=== PATIENT | female | born 1975 | race Caucasian/White ===

== ENCOUNTER → 2017-10-23 | Outpatient (CLI) | payer MEDICAID | END | disposition home or self-care (01) | LOC: CFH 10:24 | PROVIDERS: ATTEND Family Medicine | DX: Z12.31 Encounter for screening mammogram for malignant neoplasm of breast (principal) | CPT/HCPCS: G0202 ==

== ENCOUNTER → 2017-12-24 | Outpatient (CLI) | payer MEDICAID | END | disposition home or self-care (01) | LOC: CFH 12:45 | PROVIDERS: ATTEND Family Medicine | DX: N60.01 Solitary cyst of right breast (principal); N63.10 Unspecified lump in the right breast, unspecified quadrant; Z80.3 Family history of malignant neoplasm of breast | CPT/HCPCS: 76642; 77065 ==

== ENCOUNTER → 2018-01-15 | Outpatient (CLI) | payer MEDICAID ==
[~2018-01-15] MED LIST: LIDOCAINE 1%, 20ML ONE
== END | disposition home or self-care (01) ==
LOC: CFH 08:20
PROVIDERS: ATTEND Family Medicine
DX: N63.20 Unspecified lump in the left breast, unspecified quadrant (principal)
CPT/HCPCS: 19083; 76641; 77065; 88305; J3490

== ENCOUNTER 2018-03-09 07:24 | Inpatient (IN) | payer MEDICAID ==
[~2018-03-09] VITALS: Ht 166.4 cm; Wt 79.6 kg
[~2018-03-09 07:24] MED LIST changes: +BACL20TA PO; +BUPR300T49 PO; +HYDR25TA6 PO; -LIDOCAINE 1%, 20ML ONE; +LISI-170 PO
[2018-03-09] MEDS ORDERED: LIDOCAINE-MPF 1%, 2ML ONE (08:00)
[2018-03-09] MEDS ORDERED: LACTATED RINGERS 1,000 ML IV SCH (08:15)
[2018-03-09 08:16] LABS: HCG UR SG 1.024 (1.003-1.030)
[2018-03-09] MEDS ORDERED: LIDOCAINE-MPF 1%, 5ML ONE ×2 (08:19→08:21)
[2018-03-09] MEDS ORDERED: BUPIVACAINE/PF 0.5% ONE (08:20)
[2018-03-09] MEDS ORDERED: ISOSULFAN BLUE 10 MG/ML, 5ML IV ONE (08:20)
[2018-03-09] MEDS ORDERED: EPINEPHRINE 1 MG/ML, 1ML ONE (08:21)
[2018-03-09] MEDS ORDERED: BUPIVACAINE/PF-EPI 0.5% 1:200K ONE (08:25)
[2018-03-09] MEDS ORDERED: ACETAMINOPHEN 500 MG TABLET PO ONE (08:30)
[2018-03-09] MEDS ORDERED: ONDANSETRON ODT 8 MG PO ONE (08:30)
[2018-03-09] MEDS ORDERED: LIDOCAINE-MPF 1%, 2ML INFIL ONE (08:30)
[2018-03-09] MEDS ORDERED: OxyconTIN ER 20 MG TAB.ER PO ONE (08:30)
[2018-03-09] MEDS ORDERED: GABAPENTIN 300 MG CAPSULE PO ONE (08:30)
[2018-03-09] MEDS ORDERED: MIDAZOLAM 1 MG/ML, 2ML ONE (08:35)
[2018-03-09] MEDS ORDERED: FENTANYL PF 250 MCG/5ML ONE (08:35)
[2018-03-09] MEDS ORDERED: LIDOCAINE GEL 2%, 5ML ONE (08:36)
[2018-03-09] MEDS ORDERED: SUCCINYLCHOLINE 20 MG/ML, 10ML ONE (09:18)
[2018-03-09] MEDS ORDERED: ROCURONIUM 10 MG/ML,10ML ONE (09:18)
[2018-03-09] MEDS ORDERED: FENTANYL PF 100 MCG/2ML IV PRN (09:30)
[2018-03-09] MEDS ORDERED: ALBUTEROL/IPRATROPIUM 2.5MG/0.5MG, 3 ML NPPB PRN (09:30)
[2018-03-09] MEDS ORDERED: PROMETHAZINE 12.5 MG SUPP PR PRN (09:30)
[2018-03-09] MEDS ORDERED: METOCLOPRAMIDE 5 MG/ML, 2ML IV PRN (09:30)
[2018-03-09] MEDS ORDERED: ALBUTEROL SULFATE 2.5 MG/3 ML NPPB PRN (09:30)
[2018-03-09] MEDS ORDERED: DIAZEPAM 5 MG/ML, 2ML IVPush PRN (09:30)
[2018-03-09] MEDS ORDERED: OXYcodone 5 MG/5 ML ORAL.SOL UDC PO PRN (09:30)
[2018-03-09] MEDS ORDERED: MIDAZOLAM 1 MG/ML, 2ML IV PRN (09:30)
[2018-03-09] MEDS ORDERED: LABETALOL 5MG/ML, 20ML IV PRN (09:30)
[2018-03-09] MEDS ORDERED: morphine SULFATE 10 MG/ML, 1ML IV PRN ×2 (09:30→13:30)
[2018-03-09] MEDS ORDERED: PROMETHAZINE 25 MG/ML, 1ML IV PRN (09:30)
[2018-03-09] MEDS ORDERED: MEPERIDINE/PF 25MG/0.5ML IVPush PRN (09:30)
[2018-03-09] MEDS ORDERED: HYDROmorphone 1 MG/ML, 1ML IV PRN (09:30)
[2018-03-09] MEDS ORDERED: ONDANSETRON 2MG/ML, 2ML IVPush PRN (09:30)
[2018-03-09] MEDS ORDERED: hydrALAzine 20 MG/ML, 1ML IV PRN (09:30)
[2018-03-09] MEDS ORDERED: DEXAMETHASONE 4 MG/ML, 1ML ONE (09:58)
[2018-03-09] MEDS ORDERED: CEFAZOLIN 1,000 MG ONE (09:58)
[2018-03-09] MEDS ORDERED: PROPOFOL 10 MG/ML, 20ML ONE (09:58)
[2018-03-09] MEDS ORDERED: KETAMINE 10 MG/ML, 20ML ONE (09:59)
[2018-03-09] MEDS ORDERED: MEPERIDINE/PF 50 MG/ML ONE (09:59)
[2018-03-09] MEDS ORDERED: LORazepam 2 MG/ML, 1ML ONE (11:14)
[2018-03-09] MEDS: LORazepam 2 MG/ML, 1ML IVPush PRN ×2 (11:16→11:35)
[2018-03-09] MEDS ORDERED: ONDANSETRON 2MG/ML, 2ML IV PRN (13:30)
[2018-03-09] MEDS ORDERED: HYDROcodone/APAP 5/325 TABLET PO PRN (13:30)
[2018-03-09 14:00] VITALS: BP 130/82
[2018-03-09] MEDS ORDERED: ONDANSETRON ODT 4 MG PO PRN (14:30)
[2018-03-09] MEDS ORDERED: ONDANSETRON ODT 4 MG ONE (14:33)
[2018-03-09] MEDS: BACLOFEN 10 MG TABLET PO SCH ×2 (16:07→20:55)
[2018-03-09] MEDS: OXYcodone/APAP 5/325MG TABLET PO PRN ×2 (16:47→20:54)
[2018-03-09 20:06] VITALS: BP 111/67
[2018-03-09] MEDS: LACTATED RINGERS 1,000 ML IV SCH (20:54)
[2018-03-09 23:28] VITALS: BP 89/46
[2018-03-10 00:07] VITALS: BP 92/54
[2018-03-10] MEDS: OXYcodone/APAP 5/325MG TABLET PO PRN ×3 (01:04→09:25)
[2018-03-10 01:08] VITALS: BP 102/63
[2018-03-10 03:49] VITALS: BP 104/63
[2018-03-10] MEDS: LACTATED RINGERS 1,000 ML IV SCH (04:34)
[2018-03-10 07:12] VITALS: BP 102/62
[2018-03-10] MEDS ORDERED: WELLBUTRIN 300 MG HOMEMEDPO SCH (09:00)
[2018-03-10] MEDS ORDERED: LISINOPRIL 20 MG TABLET PO SCH (09:00)
[2018-03-10] MEDS ORDERED: HYDROCHLOROTHIAZIDE 25 MG TABLET PO SCH (09:00)
[2018-03-10] MEDS: BACLOFEN 10 MG TABLET PO SCH (09:28)
[2018-03-10] MEDS ORDERED: OXYC-302 PO (10:08)
== END 2018-03-10 12:08 | disposition home or self-care (01) | DRG 581 ==
LOC: OUT 07:24 → EDSTATUS 09:30 → 4NOR 12:45 → OUT 13:12 → DCLOUNGE 03-10 11:55
PROVIDERS: ADMIT Surgery; ATTEND Surgery
PROC: 07B60ZX Excision of Left Axillary Lymphatic, Open Approach, Diagnostic (ICD-10-PCS; 2018-03-09)
PROC: 0HTU0ZZ Resection of Left Breast, Open Approach (ICD-10-PCS; 2018-03-09)
PROC: 0HTT0ZZ Resection of Right Breast, Open Approach (ICD-10-PCS; principal; 2018-03-09 09:30)
DX: C50.912 Malignant neoplasm of unspecified site of left female breast (principal); F32.9 Major depressive disorder, single episode, unspecified; I10 Essential (primary) hypertension; Z40.01 Encounter for prophylactic removal of breast; J45.909 Unspecified asthma, uncomplicated
CPT/HCPCS: 38792; 81025; 88307; 88333; C1729; J0171; J0690; J1100; J2175; J2250; J2704; J3010; J3490; Q0162; A9541; J0330; J2060; J7120

== ENCOUNTER 2018-03-21 15:01 | Emergency (ER) | payer MEDICAID ==
[~2018-03-21] VITALS: Ht 165.1 cm; Wt 78.3 kg
[~2018-03-21 15:01] MED LIST changes: +OXYC-302 PO
[2018-03-21 15:33] VITALS: BP 134/80
[2018-03-21] MEDS ORDERED: KETOROLAC 30 MG/1 ML IM ONE (16:00)
[2018-03-21] MEDS ORDERED: METHOCARBAMOL 750 MG TABLET PO ONE (16:00)
[2018-03-21] MEDS ORDERED: KETOROLAC 30 MG/1 ML ONE (16:06)
[2018-03-21] MEDS ORDERED: METHOCARBAMOL 750 MG TABLET ONE (16:06)
== END 2018-03-21 17:06 | disposition home or self-care (01) ==
LOC: ED 17:00
DX: S16.1XXA Strain of muscle, fascia and tendon at neck level, initial encounter (principal); M62.830 Muscle spasm of back; I10 Essential (primary) hypertension; E11.9 Type 2 diabetes mellitus without complications; V49.9XXA Car occupant (driver) (passenger) injured in unspecified traffic accident, initial encounter; Y93.89 Activity, other specified; Y92.410 Unspecified street and highway as the place of occurrence of the external cause; Y99.8 Other external cause status
CPT/HCPCS: 70450; 72125; 96372; 99284; J1885

== ENCOUNTER 2019-03-11 10:50 | Outpatient (CLI) | payer MEDICAID | END 2019-03-11 23:59 | disposition home or self-care (01) | LOC: CFH 10:50 | PROVIDERS: ATTEND Internal Medicine Hematology & Oncology | DX: M85.89 Other specified disorders of bone density and structure, multiple sites (principal); C50.112 Malignant neoplasm of central portion of left female breast | CPT/HCPCS: 77080 ==

== ENCOUNTER 2019-06-03 08:56 | Outpatient (CLI) | payer MEDICAID ==
[2019-06-03] MEDS ORDERED: SERT50TA PO (09:20)
[2019-06-03] MEDS ORDERED: RISE35TA PO (09:20)
[2019-06-03] MEDS ORDERED: ANAS1TAB PO (09:20)
[2019-06-03] MEDS ORDERED: BREX2TAB PO (09:20)
[2019-06-03] MEDS ORDERED: LISI-170 PO (09:32)
[2019-06-03 09:53] LABS: BASOPHILS # (AUTO) 0.02 x10^3/uL (0-0.1); BASOPHILS % (AUTO) 0 % (0-1); EOSINOPHILS # (AUTO) 0.26 x10^3/uL (0-0.4); EOSINOPHILS % (AUTO) 5 % (1-7); LYMPHOCYTES # (AUTO) 1.71 x10^3/uL (1-3.4); LYMPHOCYTES % (AUTO) 32 % (22-44); MD NO; MEAN CORPUSCULAR HGB CONC 33.1 g/dL (32.4-35.8); MEAN CORPUSCULAR VOLUME 87.7 fL (80-100); MEAN PLATELET VOLUME 9.9 fL (7.4-10.4); MONOCYTES # (AUTO) 0.52 x10^3/uL (0.2-0.8); MONOCYTES % (AUTO) 10 % (2-9); NEUTROPHILS # (AUTO) 2.93 x10^3/uL (1.8-6.8); NEUTROPHILS % (AUTO) 54 % (42-75); PLATELET COUNT 208 x10^3/uL (130-400); RED BLOOD COUNT 4.65 x10^6/uL (3.82-5.3)
[2019-06-03 10:04] LABS: INTERNATIONAL NORMALIZED RATIO 0.94 (0.93-1.1); PROTHROMBIN TIME 9.9 Seconds (9.6-11.5)
[2019-06-03 10:08] LABS: ALBUMIN 3.7 g/dL (3.4-5.0); ANION GAP 5 mmol/L (5-15); CHLORIDE 107 mmol/L (98-107)
[2019-06-03 10:19] LABS: ALANINE AMINOTRANSFERASE 35 U/L (12-78); ALKALINE PHOSPHATASE 96 U/L (45-117); BILIRUBIN,TOTAL 0.4 mg/dL (0.2-1.0); CREATININE 0.87 mg/dL (0.55-1.02)
[2019-06-03 10:25] LABS: TOTAL PROTEIN 7.8 g/dL (6.4-8.2)
== END 2019-06-03 23:59 | disposition home or self-care (01) ==
LOC: STAR 08:56
PROVIDERS: ATTEND Specialist
DX: Z01.818 Encounter for other preprocedural examination (principal); Z15.02 Genetic susceptibility to malignant neoplasm of ovary; E11.9 Type 2 diabetes mellitus without complications; I10 Essential (primary) hypertension
CPT/HCPCS: 36415; 80053; 84703; 85025; 85610; 85730

== ENCOUNTER 2019-06-07 11:51 | Day surgery (SDC) | payer MEDICAID ==
[~2019-06-07] VITALS: Ht 165.1 cm; Wt 90.0 kg
[2019-06-07 19:15] VITALS: BP 134/84
== END 2019-06-07 20:55 | disposition home or self-care (01) ==
LOC: OUT 11:51 → 4NOR 17:52 → OUT 20:55
PROVIDERS: ATTEND Specialist
DX: Z15.02 Genetic susceptibility to malignant neoplasm of ovary (principal); N80.0 Endometriosis of uterus; N94.89 Other specified conditions associated with female genital organs and menstrual cycle; I10 Essential (primary) hypertension; F32.9 Major depressive disorder, single episode, unspecified; F17.200 Nicotine dependence, unspecified, uncomplicated; E66.9 Obesity, unspecified; Z68.32 Body mass index [BMI] 32.0-32.9, adult; Z79.811 Long term (current) use of aromatase inhibitors; Z79.899 Other long term (current) drug therapy; Z85.3 Personal history of malignant neoplasm of breast; Z90.13 Acquired absence of bilateral breasts and nipples; Z92.21 Personal history of antineoplastic chemotherapy; Z80.3 Family history of malignant neoplasm of breast
CPT/HCPCS: 36415; 58552; 74018; 86850; 86900; 88307; J0360; J1100; J2175; J2250; J2370; J2405; J2704; J3010; J3490; J7120; S2900; G0378; J2710

== ENCOUNTER → 2021-03-05 | Outpatient (CLI) | payer MEDICAID ==
[~2021-03-05] MED LIST changes: +ANAS1TAB PO; +ASPI81TA45 PO; +BREX2TAB PO; +CARV6.2512 PO; +DIAZ10TA4 PO; +FURO40TA6 PO; +LISI5TAB7 PO; -OXYC-302 PO; +OXYC1TAB14 PO; +RISE35TA PO; +SERT50TA PO; +SPIR25TA PO
== END | disposition home or self-care (01) ==
LOC: CFH 08:20
PROVIDERS: ATTEND Internal Medicine Hematology & Oncology
DX: C50.112 Malignant neoplasm of central portion of left female breast (principal); M85.88 Other specified disorders of bone density and structure, other site
CPT/HCPCS: 77080

== ENCOUNTER 2021-05-25 18:47 | Emergency (ER) | payer SELFPAY ==
[~2021-05-25] VITALS: Ht 165.1 cm; Wt 80.4 kg
== END 2021-05-25 20:44 | disposition left against medical advice (07) ==
LOC: ED 19:00
DX: F10.129 Alcohol abuse with intoxication, unspecified (principal); Z53.21 Procedure and treatment not carried out due to patient leaving prior to being seen by health care provider; Y90.0 Blood alcohol level of less than 20 mg/100 ml

== ENCOUNTER → 2021-06-11 | Outpatient (CLI) | payer MEDICAID | END | disposition home or self-care (01) | LOC: CVU 15:48 | PROVIDERS: ATTEND Internal Medicine Cardiovascular Disease | DX: I34.0 Nonrheumatic mitral (valve) insufficiency (principal); I42.9 Cardiomyopathy, unspecified | CPT/HCPCS: 93306; 93356 ==